=== PATIENT | male | born 1980 | race Asian ===

== ENCOUNTER 2017-08-25 21:26 | Emergency (ER) | payer BC ==
[2017-08-25 21:40] VITALS: BP 115/65; PULSE 63; TEMP 98.2; BMI 25.8
--- NOTE | 2017-08-25 21:43 | PDOC ---
Rapid Medical Evaluation Time Seen by Provider: 08/25/17 21:37 Medical Evaluation: Allergies Allergy/AdvReac Type Severity Reaction Status Date / Time No Known Allergies Allergy Verified 05/19/14 11:01 08/25/17 21:38 States he may have eaten something bad. C/o chest tightness and abdominal pain. Symptoms started after eating a sandwich for dinner. Pt. with vomiting and nausea Exam: Abdomen tender to palpation diffusely. ambulatory, appears uncomfortable Orders: CBC, CMP, PT/INR,Lipase, IV insert, zofran, EKG Pt. to proceed to ED for further evaluation Discharge Disposition - Referrals Referrals: Jefry Daniels MD [Primary Care Provider] - - Patient Instructions - Post Discharge Activity
--- NOTE | 2017-08-25 22:59 | PDOC ---
History of Present Illness - General History Source: Patient Exam Limitations: No Limitations - History of Present Illness Initial Comments: 08/25/17 23:20 The patient is a 36 year old male with no significant past medical history who presents to the ED with complaints of abdominal pain, nausea, and vomiting since 6:00 pm this evening. The patient states he went to [employer] and had a sandwich. Soon after his symptoms began. He notes about 10 episodes of nonbloody /nonbilious vomiting without hematemesis. He also reports multiple episodes of diarrhea as well. Denies any fever, chills, cough, SOB, chest pain, or urinary symptoms. PCP: Dr. Daniels <Erin Marks - Last Filed: 08/25/17 23:20> <Priscilla Machado - Last Filed: 08/26/17 01:51> - General Chief Complaint: Pain Stated Complaint: CHEST PAINS Time Seen by Provider: 08/25/17 21:37 Past History <Erin Marks - Last Filed: 08/25/17 23:20> - Past Medical History COPD: No - Surgical History Appendectomy: Yes - Suicide/Smoking/Psychosocial Hx Smoking Status: No Smoking History: Never smoked Number of Cigarettes Smoked Daily: 0 Information on smoking cessation initiated: No 'Breaking Loose' booklet given: 10/07/13 Hx Alcohol Use: Yes (OCCASIONALLY) Substance Use Type: Alcohol Hx Substance Use Treatment: No <Priscilla Machado - Last Filed: 08/26/17 01:51> - Past Medical History Allergies/Adverse Reactions: Allergies Allergy/AdvReac Type Severity Reaction Status Date / Time No Known Allergies Allergy Verified 08/25/17 21:38 Home Medications: Ambulatory Orders Cyclobenzaprine HCl [Flexeril] 10 mg PO Q8H PRN #21 tablet 10/07/13 Naproxen [Naprosyn] 500 mg PO BID PRN #28 tablet 10/07/13 Ondansetron [Zofran *Odt*] 8 mg SL TID PRN #12 od.tablet 08/26/17 Review of Systems - Review of Systems Able to Perform ROS?: Yes Comments:: 08/25/17 23:20 CONSTITUTIONAL: Absent: fever, chills, diaphoresis, generalized weakness, malaise, loss of appetite HEENT: Absent: rhinorrhea, nasal congestion, throat pain, throat swelling, difficulty swallowing, mouth swelling, ear pain, eye pain, visual Changes CARDIOVASCULAR: Absent: chest pain, syncope, palpitations, irregular heart rate, lightheadedness , peripheral edema RESPIRATORY: Absent: cough, shortness of breath, dyspnea with exertion, orthopnea, wheezing, stridor, hemoptysis GASTROINTESTINAL:(+) abdominal pain, abdominal distension, nausea, vomiting, diarrhea Absent: constipation, melena, hematochezia GENITOURINARY: Absent: dysuria, frequency, urgency, hesitancy, hematuria, flank pain, genital pain MUSCULOSKELETAL: Absent: myalgia, arthralgia, joint swelling SKIN: Absent: rash, itching, pallor HEMATOLOGIC/IMMUNOLOGIC: Absent: easy bleeding, easy bruising, lymphadenopathy, frequent infections ENDOCRINE: Absent: unexplained weight gain, unexplained weight loss, heat intolerance, cold intolerance NEUROLOGIC: Absent: headache, focal weakness or paresthesias, dizziness, unsteady gait, seizure, mental status changes, bladder or bowel incontinence PSYCHIATRIC: Absent: anxiety, depression, suicidal or homicidal ideation, hallucinations. All Other Systems: Reviewed and Negative <Erin Marks - Last Filed: 08/25/17 23:20> *Physical Exam - Vital Signs Last Vital Signs Temp Pulse Resp BP Pulse Ox 98.2 F 63 18 115/65 99 08/25/17 21:38 08/25/17 21:38 08/25/17 21:38 08/25/17 21:38 08/25/17 21:38 - Physical Exam Comments: 08/25/17 23:21 GENERAL: Well developed, well nourished. Awake and alert. No acute distress. HEENT: Normocephalic, atraumatic. PERRLA, EOMI. No conjunctival pallor. Sclera are non- icteric. Moist mucous membranes. Oropharynx is clear. NECK: Supple. Full ROM. No JVD. Carotid pulses 2+ and symmetric, without bruits. No thyromegaly. No lymphadenopathy. CARDIOVASCULAR: Regular rate and rhythm. No murmurs, rubs, or gallops. Distal pulses are 2+ and symmetric. PULMONARY: No evidence of respiratory distress. Lungs clear to auscultation bilaterally. No wheezing, rales or rhonchi. ABDOMINAL: Diffuse tenderness, primarily in epigastrium. Soft. Non-distended. No rebound or guarding. No organomegaly. Normoactive bowel sounds. MUSCULOSKELETAL Normal range of motion at all joints. No bony deformities or tenderness. No CVA tenderness. EXTREMITIES: No cyanosis. No clubbing. No edema. No calf tenderness. SKIN: Warm and dry. Normal capillary refill. No rashes. No jaundice. NEUROLOGICAL: Alert, awake, appropriate. Cranial nerves 2-12 intact. PSYCHIATRIC: Cooperative. Good eye contact. Appropriate mood and affect. <Erin Marks - Last Filed: 08/25/17 23:20> - Vital Signs Last Vital Signs Temp Pulse Resp BP Pulse Ox 98.2 F 63 18 115/65 99 08/25/17 21:38 08/25/17 21:38 08/25/17 21:38 08/25/17 21:38 08/25/17 21:38 <Priscilla Machado - Last Filed: 08/26/17 01:51> ED Treatment Course - LABORATORY CBC & Chemistry Diagram: 08/25/17 22:59 08/25/17 22:59 <Erin Marks - Last Filed: 08/25/17 23:20> - LABORATORY CBC & Chemistry Diagram: 08/25/17 22:59 08/25/17 22:59 <Priscilla Machado - Last Filed: 08/26/17 01:51> Medical Decision Making - Medical Decision Making 08/26/17 00:51 Patient reassessment. Patient has not had any loose stools since arriving. He states he still has epigastric discomfort but does not want any morphine for it. No further vomiting. Patient receiving second liter of fluid. Denies any chest pain or shortness of breath. EKG is normal sinus rhythm with no signs of ischemia 08/26/17 01:50 pt feels good and wants to go home <Priscilla Machado - Last Filed: 08/26/17 01:51> *DC/Admit/Observation/Transfer - Attestations Scribe Attestion: 08/25/17 23:22 Documentation prepared by Erin Marks, acting as medical collections for Priscilla Machado MD. <Erin Marks - Last Filed: 08/25/17 23:20> <Priscilla Machado - Last Filed: 08/26/17 01:51> Diagnosis at time of Disposition: Vomiting and diarrhea, Epigastric abdominal pain - Discharge Dispostion Disposition: HOME Condition at time of disposition: Stable - Prescriptions Prescriptions: Ondansetron [Zofran *Odt*] 8 mg SL TID PRN #12 od.tablet PRN Reason: Nausea And/Or Vomiting - Referrals Referrals: Jefry Daniels MD [Primary Care Provider] - - Patient Instructions Printed Discharge Instructions: DI for Diarrhea and Traveler's Diarrhea -- Adult, DI for Vomiting -- Adult Additional Instructions: PLEASE ADVANCE YOUR DIET TOLERATED, STARTING WITH FLUIDS FIRST, THEN SOLIDS SUCH BANANAS,RICE,DRY TOAST RETURN FOR WORSENING SYMPTOMS TAKE ZOFRAN IF NEEDED FOR NAUSEA - Post Discharge Activity
[2017-08-25] MEDS ORDERED: SODIUM CHLORIDE 1,000 ML IV STA (23:05)
[2017-08-25] MEDS ORDERED: ONDANSETRON 4 MG/2 ML VIAL IVPUSH ONE (23:05)
[2017-08-25 23:19] LABS: BASO % 0.2 % (0-2.0); EOS % 0.6 % (0-4.5); HEMATOCRIT 48.4 % (35.4-49); LYMPH % 8.9 % (8-40); MCH 27.3 pg (25.7-33.7); MCHC 33.1 g/dl (32.0-35.9); MEAN CELL VOLUME 82.5 fl (80-96); MEAN PLT VOLUME 8.6 fl (7.5-11.1); MONO % 3.7 % (3.8-10.2); NEUT % 86.6 % (42.8-82.8); PLATELET COUNT 272 K/MM3 (134-434); RBC 5.87 M/mm3 (4.00-5.60); WHITE BLOOD COUNT 15.1 K/mm3 (4.0-10.0)
[2017-08-25 23:30] LABS: INR 1.12 (0.82-1.09); PROTHROMBIN TIME (PATIENT) 12.7 SEC (9.7-13.0)
[2017-08-25] MEDS ORDERED: ONDANSETRON 4 MG/2 ML VIAL ONE (23:31)
[2017-08-25 23:42] LABS: ALBUMIN 4.2 g/dl (3.4-5.0); ALK PHOS 67 U/L (45-117); ANION GAP 9 (8-16); BILIRUBIN,TOTAL 0.7 mg/dL (0.2-1.0); BLOOD UREA NITROGEN 16 mg/dL (7-18); CALCIUM 9.6 mg/dL (8.5-10.1); CHLORIDE 102 mmol/L (98-107); CO2 29 mmol/L (21-32); CREATININE 1.3 mg/dL (0.7-1.3); GLUCOSE,RANDOM 95 mg/dL (74-106); POTASSIUM 3.9 mmol/L (3.5-5.1); SGOT/AST 27 U/L (15-37); SGPT/ALT 41 U/L (12-78); SODIUM 140 mmol/L (136-145); TOT PROT 7.9 g/dl (6.4-8.2)
[2017-08-25 23:51] LABS: URINE GLUCOSE (UA) NEGATIVE (NEGATIVE)
[2017-08-25] MEDS ORDERED: FAMOTIDINE IV 20 MG/12 ML VIAL IVPUSH ONE (23:51)
[2017-08-25 23:53] LABS: URINE APPEARANCE SL CLOUDY; URINE COLOR AMBER
[2017-08-25 23:54] LABS: URINE BILIRUBIN NEGATIVE (<2.0 mg/dL); URINE KETONE TRACE (NEGATIVE); URINE LEUK ESTERASE NEGATIVE (NEGATIVE); URINE NITRITE NEGATIVE (NEGATIVE); URINE PROTEIN NEGATIVE (NEGATIVE); URINE UROBILINOGEN NORMAL mg/dL (0.2-1.0)
[2017-08-26] MEDS ORDERED: FAMOTIDINE 20 MG/50 ML IVPB 20 MG/50 ML MG IVPB ONE (00:32)
--- NOTE | 2017-08-26 11:30 | EKG ---
Test Reason : Blood Pressure : / mmHG Vent. Rate : 068 BPM Atrial Rate : 068 BPM P-R Int : 148 ms QRS Dur : 086 ms QT Int : 406 ms P-R-T Axes : 053 060 049 degrees QTc Int : 431 ms NORMAL SINUS RHYTHM NORMAL ECG NO PREVIOUS ECGS AVAILABLE Confirmed by MARY BISHOP, STEPHANIE ([id number]) on 08/26/2017 11:29:43 AM Referred By: Confirmed By:STEPHANIE HERNANDEZ MD
== END 2017-08-26 02:07 | disposition home or self-care (01) ==
LOC: JER 21:26
PROC: 3E033GC Introduction of Other Therapeutic Substance into Peripheral Vein, Percutaneous Approach (ICD-10-PCS; principal; 2017-08-25)
PROC: 3E033GC Introduction of Other Therapeutic Substance into Peripheral Vein, Percutaneous Approach (ICD-10-PCS; 2017-08-25)
DX: R11.2 Nausea with vomiting, unspecified (principal)
CPT/HCPCS: 36415; 80053; 81003; 83690; 85025; 85610; 87086; 93005; 93010; 99282-25; J7030

== ENCOUNTER 2020-03-17 04:58 | Emergency (ER) | payer BC ==
[2020-03-17 05:23] VITALS: BP 133/92; PULSE 74; TEMP 98.4; BMI 26.6
[2020-03-17] MEDS ORDERED: ACETAMINOPHEN 325 MG TABLET (FP) PO ONE (05:40)
[2020-03-17] MEDS ORDERED: LIDOCAINE 5% TOPICAL PATCH TP ONE (05:40)
[2020-03-17] MEDS ORDERED: KETOROLAC TROMETHAMINE 30 MG/1 ML VIAL IM ONE (05:40)
[2020-03-17] MEDS ORDERED: METHOCARBAMOL 500 MG TABLET PO ONE (05:45)
[2020-03-17] MEDS ORDERED: KETOROLAC TROMETHAMINE 15 MG/ML VIAL ONE (06:14)
[2020-03-17] MEDS ORDERED: METHOCARBAMOL 500 MG TABLET ONE (06:14)
[2020-03-17] MEDS ORDERED: LIDOCAINE 5% TOPICAL PATCH ONE (06:14)
[2020-03-17] MEDS ORDERED: ACETAMINOPHEN 325 MG TABLET (FP) ONE (06:14)
[2020-03-17] MEDS ORDERED: LIDOCAINE PATCH REMOVAL MC ONE (17:30)
== END 2020-03-17 07:35 | disposition home or self-care (01) ==
LOC: JER 04:58
PROC: 3E0233Z Introduction of Anti-inflammatory into Muscle, Percutaneous Approach (ICD-10-PCS; principal; 2020-03-17)
DX: S46.812A Strain of other muscles, fascia and tendons at shoulder and upper arm level, left arm, initial encounter (principal)
CPT/HCPCS: 99284-25